=== PATIENT | female | born 1970 | race Hispanic/Latino ===

== ENCOUNTER 2017-09-01 11:44 | Emergency (ER) | payer BC ==
[2017-09-01] MEDS ORDERED: IPRATROPIUM/ALBUTEROL SULFATE 3 ML SOLUTION IH ONE (12:22)
[2017-09-01] MEDS ORDERED: METHYLPREDNISOLONE SOD SUCC 125MG/2ML VIAL ONE (12:42)
== END 2017-09-01 15:20 | disposition home or self-care (01) ==
LOC: EDH 11:44
DX: J16.8 Pneumonia due to other specified infectious organisms (principal); Z88.8 Allergy status to other drugs, medicaments and biological substances; Z90.710 Acquired absence of both cervix and uterus
CPT/HCPCS: 71046; 94640; 96372; 99284; J2930

== ENCOUNTER 2018-10-28 14:34 | Emergency (ER) | payer BC ==
[2018-10-28 15:09] LABS: APPEARANCE,URINE CLEAR (CLEAR); BILIRUBIN,URINE NEGATIVE (NEGATIVE); COLOR,URINE YELLOW (YELLOW); GLUCOSE, URINE (UA) NEGATIVE (NEGATIVE); KETONES,URINE NEGATIVE (NEGATIVE); LEUKOCYTE ESTERASE ,URINE NEGATIVE (NEGATIVE); NITRATE,URINE NEGATIVE (NEGATIVE); OCCULT BLOOD,URINE SMALL (NEGATIVE); PROTEIN,URINE NEGATIVE (NEGATIVE); UROBILINOGEN,URINE 0.2 mg/dL (0.2-1.0)
[2018-10-28 15:29] LABS: BACTERIA,URINE Few /HPF (None Seen); MUCUS,URINE Rare LPF (None Seen); RBC,URINE 0-1 /HPF (0-1); SQUAMOUS EPITHELIAL CELL,UR Rare /HPF (0-2); WBC,URINE 0-1 /HPF (0-1)
[2018-10-28 16:10] LABS: BASOPHILS % (AUTO) 0.5 % (0.0-5.0); MEAN CORPUSCULAR HGB CONC 34.5 g/dL (32.0-36.0); MEAN CORPUSCULAR VOLUME 89.7 fL (79-99); MONOCYTES % (AUTO) 6.6 % (3.0-13.0); NEUTROPHILS % (AUTO) 53.9 % (40.0-77.0); PLATELET COUNT (AUTO) 269 K/uL (130-400); RED BLOOD CELL COUNT(AUTO) 4.68 MIL/uL (4.00-5.50)
[2018-10-28 16:23] LABS: INR 1.02 (0.85-1.15); PARTIAL THROMBOPLASTIN TIME 32.2 SEC (26.3-35.5); PROTHROMBIN TIME 10.7 SEC (9.6-11.6)
[2018-10-28 17:20] LABS: CREATININE 0.6 mg/dL (0.5-1.5); POTASSIUM 3.5 mmol/L (3.5-5.1)
[2018-10-28 17:25] LABS: BILIRUBIN,TOTAL 0.3 mg/dL (0.2-1.0); TOTAL PROTEIN, SERUM 8.3 g/dL (6.0-8.3)
[2018-10-28] MEDS ORDERED: IOHEXOL-350 75 ML VIAL IV ONE ×2 (17:30→18:19)
== END 2018-10-28 19:36 | disposition home or self-care (01) ==
LOC: EDH 14:34
DX: I62.9 Nontraumatic intracranial hemorrhage, unspecified (principal); F41.9 Anxiety disorder, unspecified; Z88.8 Allergy status to other drugs, medicaments and biological substances
CPT/HCPCS: 36415; 70450; 70496; 70498; 80053; 81001; 85025; 85610; 85730; 99291; Q9967

== ENCOUNTER 2020-01-15 | Inpatient (IN) | payer BC | END 2020-01-21 18:26 | disposition home or self-care (01) | DRG 177 | PROVIDERS: ADMIT Internal Medicine ==

== ENCOUNTER 2024-04-08 20:23 | Emergency (ER) | payer OTHER, MEDICARE ==
[~2024-04-08] VITALS: Ht 157.5 cm; Wt 93.4 kg
[~2024-04-08 20:23] MED LIST: APIX2.5T PO; CYAN100022; DEXA6TAB PO; DOCU100C33; ERGO500093; LABE200T7; OXYB10TA30; PARO-37; TYL3B
[2024-04-08 20:36] VITALS: BP 154/91; PULSE 87; RESP 19; TEMP 98.3; O2SAT 100
== END 2024-04-08 20:54 | disposition left against medical advice (07) ==
LOC: EDH 20:23
DX: F41.9 Anxiety disorder, unspecified (principal); Z79.01 Long term (current) use of anticoagulants; Z79.52 Long term (current) use of systemic steroids; Z79.899 Other long term (current) drug therapy; Z85.850 Personal history of malignant neoplasm of thyroid; Z88.4 Allergy status to anesthetic agent; Z88.8 Allergy status to other drugs, medicaments and biological substances